=== PATIENT | male | born 1990 | race Caucasian/White ===

== ENCOUNTER 2020-08-13 14:04 | Emergency (ER) | payer BC, SELFPAY ==
[2020-08-13 14:08] VITALS: BP 169/119; PULSE 85; RESP 16; TEMP 36.5; O2SAT 96; BMI 29.5
--- NOTE | 2020-08-13 14:08 | HMH.EDGENADL ---
ED Disposition Clinical Impression: Bipolar 1 disorder, Encounter for medication refill Disposition: Home, Self-Care Condition on Discharge: Good Additional Instructions: Please take meds as prescribed. Follow-up with Dr. Cruz as scheduled on . Immediately return if any new or worsening symptoms prior to that time. Prescriptions: haloperidoL [Haldol 5mg tablet] 10 mg PO BID 21 Days #42 tab Transmission Status: Pending to [id number] OLANZapine [Zyprexa 5mg tablet] 5 mg PO BID 21 Days #42 tab Transmission Status: Pending to [id number] Referrals: PCP,No [Primary Care Provider] - - Critical Care Critical Care Time: No Attestation: On , the high probability of a clinically significant, sudden or life threatening deterioration of the following system(s) required my full and direct attention, intervention and personal management. The time I documented below is in addition to time spent performing reported procedures but includes the following listed in this critical care notation. Medical Decision Making - Medical Records Medical records reviewed: Yes: I reviewed the patient's medical records. - Jose Inquiry Pt receiving controlled substance: No Vital Signs: 08/13/20 14:08 Temperature 97.7 F Temperature Source Temporal Artery Scan Pulse Rate [Right Radial] 85 Respiratory Rate 16 Blood Pressure [Right Arm] 169/119 H Blood Pressure Mean [Right Arm] 135 Blood Pressure Source [Right Arm] Automatic Cuff Blood Pressure Position [Right Arm] Sitting 02 Sat by Pulse Oximetry 96 Oxygen Delivery Method Room Air Orders (Tests/Meds): ED MEDICATIONS Discontinued Medications Generic Name Dose Route Start Last Admin Trade Name Freq PRN Reason Stop Dose Admin Haloperidol 10 mg 08/13/20 14:19 Haloperidol 5 Mg Tablet PO 08/13/20 14:20 ONCE ONE Olanzapine 5 mg 08/13/20 14:18 Olanzapine 5 Mg Tablet PO 08/13/20 14:19 ONCE ONE Medical Decision Narrative: Patient presents with medication refill request. Mom does have empty bottles and patient does appear to take Zyprexa 5 mg twice daily and Haldol 10 mg twice daily. These bottles are empty. Patient also takes benztropine. Mom states patient has been on these medications for several years and simply ran out as he currently is in the process of finding a new PCP. Mom states he has an appointment on the . Patient was provided a short course of these medications to make it until the . I do believe it is indicated. Mother knows the risks of these medications and will monitor patient appropriately. Patient will need to return if any psychotic symptoms, hallucinations, or other new concerning symptoms. Assessment: Bipolar disorder Schizophrenia Disposition: Home with prescriptions and follow-up General Adult HPI - General Stated complaint: headache Time Seen by Provider: 08/13/20 14:25 - History of Present Illness HPI narrative: Patient 29-year-old male history of bipolar disorder and schizophrenia presenting with medication complaint. Mother states patient has been out of his Zyprexa and Haldol over the past 2 weeks he has been taking his medications for several years. He most recently relocated to [place] and his previous provider in [place] was unable to drive renew prescriptions as he does have an appointment with a new provider on 03 September. Mom states he has had no psychotic symptoms but has complained of intermittent headache which he normally does when he is out of his medications. Patient has no complaints to me here today in the emergency department. Mother requesting refill prescriptions. - Related Data Home Medications Medication Instructions Recorded Confirmed Benztropine Mesylate 0.5 mg PO BID 08/13/20 08/13/20 Divalproex Sodium 500 mg PO DIRECTED 08/13/20 08/13/20 OLANZapine [Olanzapine] 5 mg PO BID 08/13/20 08/13/20 haloperidoL [Haloperidol] 10 mg PO BID 08/13/20 1
[2020-08-13 15:01] VITALS: BP 169/119; PULSE 85; RESP 16; TEMP 36.5; O2SAT 96
== END 2020-08-13 15:02 | disposition home or self-care (01) ==
PROVIDERS: Emergency Provider Emergency Medicine
DX: F31.9 Bipolar disorder, unspecified (principal); Z76.0 Encounter for issue of repeat prescription; Z88.0 Allergy status to penicillin
CPT/HCPCS: 99281

== ENCOUNTER → 2020-10-19 13:38 | Outpatient (CLI) | payer BC, SELFPAY ==
[2020-10-19 14:20] LABS: Basophils # 0.1 K/mm3 (0-0.2); Basophils % 0.7 % (0.1-2.0); Eosinophils # 0.5 K/mm3 (0.0-0.4); Eosinophils % 3.2 % (0.1-12.0); Hematocrit 46.2 % (42.0-52.0); Hemoglobin 15.6 g/dL (14.1-18.0); Lymphocytes # 4.2 K/mm3 (0.7-4.5); Lymphocytes % 30.2 % (10-50); Mean Corpuscular HGB Conc 33.8 g/dL (31.8-35.4); Mean Corpuscular Hemoglobin 30.5 pg (27.0-31.2); Mean Corpuscular Volume 90.2 fl (80-94); Mean Platelet Volume 8.5 fl (7.4-10.4); Monocytes # 1.4 K/mm3 (0.1-1.0); Monocytes % 10.1 % (1.7-9.3); Neutrophils # 7.8 K/mm3 (1.8-7.8); Neutrophils % 55.8 % (37.0-80.0); Platelet Count 353 K/mm3 (142-424); Red Blood Count 5.12 M/mm3 (4.60-6.20); Red Cell Distribution Width 13.8 % (11.5-17.5)
[2020-10-19 14:37] LABS: Hemoglobin A1C 5.4 % (4.0-6.0)
[2020-10-19 15:02] LABS: Alanine Aminotransferase 26 U/L (12-78); Albumin Level 4.4 g/dl (3.5-5.0); Albumin/Globulin Ratio 1.6 (1.1-1.8); Alkaline Phosphatase 117 U/L (38-126); Anion Gap 12.6 mEq/L (5-15); Aspartate Amino Transferase 26 U/L (17-59); Bilirubin,Total 0.3 mg/dl (0.2-1.3); Blood Urea Nitrogen 10 mg/dl (9-20); Calcium 10.4 mg/dl (8.4-10.2); Carbon Dioxide 23 mmol/L (22.0-30.0); Chloride 110 mmol/L (98-107); Chol/HDL Ratio 11.4 (1-3.5); Cholesterol 274 mg/dl (140-200); Estimated Glomerular Filt Rate 114 ml/min (>60); GFR (African American) 137 ML/MIN (>60); Globulin 2.8 g/dL (1.3-3.2); Glucose 95 mg/dl (74-100); HDL Cholesterol 24 mg/dl (40-60); Iron 76 ug/dL (49-181); Potassium 4.6 mmoL/L (3.5-5.1); Sodium 141 mmol/L (136-145); Total Protein,Serum 7.2 g/dl (6.3-8.2)
[2020-10-19 15:20] LABS: Triglycerides 786 mg/dl (30-150)
[2020-10-19 15:34] LABS: Thyroid Stimulating Hormone 1.11 uIU/mL (0.465-4.68)
[2020-10-19 15:53] LABS: Vitamin B12 742 pg/mL (239-931)
[2020-10-19 16:22] LABS: Total Iron Binding Capacity 350 ug/dL (261-462)
[2020-10-29 07:23] LABS: 1,25 Dihydroxy Vitamin D 60 pg/mL (.); 1,25-Dihydroxy, Vitamin D-2 <10 pg/mL (.); 1,25-Dihydroxy, Vitamin D-3 60 pg/mL (.)
== END ==
PROVIDERS: Visit Provider Nurse Practitioner Psychiatric/Mental Health
DX: Z00.00 Encounter for general adult medical examination without abnormal findings (principal); Z79.899 Other long term (current) drug therapy
CPT/HCPCS: 36415; 80053; 80061; 82607; 82652; 83036; 83540; 83550; 84443; 85025

== ENCOUNTER 2021-01-16 17:17 | Emergency (ER) | payer BC, SELFPAY ==
[2021-01-16] VITALS (10 sets, daily range): BP systolic 111–166; BP diastolic 10–116; PULSE 62–115; RESP 16–20; TEMP 35.9–37.4; O2SAT 94–98; BMI 35.4; BMI 36.5
[2021-01-16 18:20] LABS: Microscopic, Urine URINE MICROSCOPIC (MICROSCOPIC)
[2021-01-16 18:40] LABS: Appearance,Urine CLEAR (Clear); Bilirubin,Urine Negative (Negative); Blood, Urine Negative (Negative); Color,Urine YELLOW (Yellow); Glucose,Urine (UA) Negative (Negative); Ketones,Urine Negative (Negative); Leukocyte Esterase,Urine Negative (Negative); Nitrate,Urine Negative (Negative); Protein,Urine Negative (Negative); Urobilinogen,Urine 0.2 EU/dl (0.2)
--- NOTE | 2021-01-16 18:46 | PC.NURSE ---
Lab at bedside
[2021-01-16 19:06] LABS: Benzodiazepines Screen,Urine Negative ng/ml (<200)
[2021-01-16 19:07] LABS: Amphetamine/Metha Screen,Urine Negative ng/ml (<1000)
[2021-01-16 19:08] LABS: Cannabinoid Screen,Urine Negative ng/ml (<50)
[2021-01-16 19:09] LABS: Cocaine Screen,Urine Negative ng/ml (<300); Opiate Screen,Urine Negative ng/ml (<300)
[2021-01-16 19:22] LABS: Basophils # 0.1 K/mm3 (0-0.2); Basophils % 0.7 % (0.1-2.0); Eosinophils # 0.4 K/mm3 (0.0-0.4); Eosinophils % 2.1 % (0.1-12.0); Hematocrit 47.6 % (42.0-52.0); Hemoglobin 16.6 g/dL (14.1-18.0); Lymphocytes % 17.7 % (10-50); Mean Corpuscular HGB Conc 34.8 g/dL (31.8-35.4); Mean Corpuscular Hemoglobin 29.6 pg (27.0-31.2); Mean Platelet Volume 8.1 fl (7.4-10.4); Monocytes # 1.1 K/mm3 (0.1-1.0); Monocytes % 6.3 % (1.7-9.3); Neutrophils # 12.4 K/mm3 (1.8-7.8); Neutrophils % 73.3 % (37.0-80.0); Platelet Count 403 K/mm3 (142-424); Red Blood Count 5.59 M/mm3 (4.60-6.20); Red Cell Distribution Width 13.4 % (11.5-17.5)
--- NOTE | 2021-01-16 19:24 | HMH.EDGENADL ---
ED Disposition Clinical Impression: Suicidal ideation, Chronic schizophrenia, Elevated triglycerides with high cholesterol, Elevated white blood cell count Disposition: Xfer Psychiatric Hosp Condition on Discharge: Fair Additional Instructions: Patient needs to follow-up with a physician for his elevated triglycerides cholesterol and white count which were present in October. Referrals: Heather Cruz APRN [Primary Care Provider] - Time of Disposition: 20:15 - Critical Care Critical Care Time: No Attestation: On 01/16/21, the high probability of a clinically significant, sudden or life threatening deterioration of the following system(s) required my full and direct attention, intervention and personal management. The time I documented below is in addition to time spent performing reported procedures but includes the following listed in this critical care notation. Medical Decision Making - Jose Inquiry Pt receiving controlled substance: No Vital Signs: 01/16/21 17:18 01/16/21 18:18 01/16/21 18:55 Temperature 98.6 F 99.3 F Temperature Source Oral Oral Pulse Rate 103 H 100 H Pulse Rate [Radial] 105 H Respiratory Rate 16 16 17 Blood Pressure 144/98 H 145/93 H Blood Pressure [Right Arm] 166/116 H Blood Pressure Mean [Right Arm] 132 Blood Pressure Source Automatic Cuff Manual Cuff/ Auscultation Blood Pressure Position Sitting Blood Pressure Position [Right Arm] Sitting 02 Sat by Pulse Oximetry 98 94 L 96 Oxygen Delivery Method Room Air Room Air Room Air 01/16/21 19:24 01/16/21 19:46 01/16/21 20:01 Temperature 97.8 F 98.5 F 98.9 F Temperature Source Oral Oral Pulse Rate 78 115 H Pulse Rate [Radial] Respiratory Rate 20 20 20 Blood Pressure 154/10 H 154/99 H 157/104 H Blood Pressure [Right Arm] Blood Pressure Mean [Right Arm] Blood Pressure Source Automatic Cuff Automatic Cuff Automatic Cuff Blood Pressure Position Supine Supine Supine Blood Pressure Position [Right Arm] 02 Sat by Pulse Oximetry 96 96 95 Oxygen Delivery Method Room Air Room Air Room Air - Lab Data Lab results reviewed: Yes: I reviewed the patient's lab results. Lab Results 01/16/21 17:45: Urine Color Yellow, Urine Appearance Clear, Urine pH 6.0, Ur Specific [place] 1.010, Urine Protein Negative, Urine Glucose (UA) Negative, Urine Ketones Negative, Urine Blood Negative, Urine Nitrate Negative, Urine Bilirubin Negative, Urine Urobilinogen 0.2, Ur Leukocyte Esterase Negative, Ur Squamous Epith Cells 3-5 01/16/21 17:45: Urine Opiates Screen Negative, Urine Methadone Screen Negative, Ur Phencyclidine Scrn Negative, Ur Amphetamines Screen Negative, U Benzodiazepines Scrn Negative, Urine Cocaine Screen Negative, U Marijuana (THC) Screen Negative 01/16/21 18:20: WBC 17.0 H, RBC 5.59, Hgb 16.6, Hct 47.6, MCV 85.0, MCH 29.6, MCHC 34.8, RDW 13.4, Plt Count 403, MPV 8.1, Neut % (Auto) 73.3, Lymph % (Auto) 17.7, [place] % (Auto) 6.3, Eos % (Auto) 2.1, Baso % (Auto) 0.7, Neut # (Auto) 12.4 H, Lymph # (Auto) 3.0, [place] # (Auto) 1.1 H, Eos # (Auto) 0.4, Baso # (Auto) 0.1, Total Counted 100, Neutrophils % (Manual) 70, Lymphocytes % (Manual) 25, Monocytes % (Manual) 5, Platelet Estimate Normal, RBC Morphology Normal 01/16/21 18:20: Sodium 140, Potassium 3.9, Chloride 108 H, Carbon Dioxide 22, Anion Gap 13.9, BUN 7 L, Creatinine 0.80, Estimated Creat Clear 206, Estimated GFR 113, Est GFR ( Amer) 136, Glucose 107 H, Calcium 9.6, Total Bilirubin 0.4, AST 33, ALT 37, Alkaline Phosphatase 158 H, Total Protein 7.9, Albumin 4.8, Globulin 3.1, Albumin/Globulin Ratio 1.5, Salicylates < 1.0 L, Acetaminophen < 10 L 01/16/21 18:20: Plasma/Serum Alcohol < 10 Count of 17,000 with no history of infection. He had very significantly elevated triglycerides cholesterol in October his drug screen is negative Result diagrams: 01/16/21 18:20 01/16/21 18:20 Orders (Tests/Meds): ORDERS Category Date Time Status UDS [Drug Screen,Urine] Stat Lab 01/16
[2021-01-16 19:30] LABS: MANUAL DIFFERENTIAL MANUAL DIFFERENTIAL (MANUAL DIFF)
[2021-01-16 19:33] LABS: Methadone Screen,Urine Negative ng/ml (<300); Phencyclidine Screen,Urine Negative ng/ml (<25)
[2021-01-16 19:38] LABS: Chloride 108 mmol/L (98-107)
[2021-01-16 19:39] LABS: Potassium 3.9 mmoL/L (3.5-5.1); Sodium 140 mmol/L (136-145)
[2021-01-16 19:41] LABS: Blood Urea Nitrogen 7 mg/dl (9-20); Creatinine Clearance Estimated 206 mL/min (50-200); Estimated Glomerular Filt Rate 113 ml/min (>60); GFR (African American) 136 ML/MIN (>60)
[2021-01-16 19:42] LABS: Alanine Aminotransferase 37 U/L (12-78); Albumin Level 4.8 g/dl (3.5-5.0); Albumin/Globulin Ratio 1.5 (1.1-1.8); Alkaline Phosphatase 158 U/L (38-126); Anion Gap 13.9 mEq/L (5-15); Aspartate Amino Transferase 33 U/L (17-59); Bilirubin,Total 0.4 mg/dl (0.2-1.3); Calcium 9.6 mg/dl (8.4-10.2); Carbon Dioxide 22 mmol/L (22.0-30.0); Globulin 3.1 g/dL (1.3-3.2); Glucose 107 mg/dl (74-100); Total Protein,Serum 7.9 g/dl (6.3-8.2)
[2021-01-16 19:49] LABS: Acetaminophen < 10 ug/ml (10-30); Salicylate < 1.0 mg/dL (2.0-20.0)
[2021-01-16 19:52] LABS: Lymphocytes % 25 % (10-50); Monocytes % 5 % (2-9); Neutrophils % 70 % (42-76); Platelet Estimate Normal; RBC Morphology Normal; Total Cells Counted 100
[2021-01-16 20:20] LABS: Ethyl Alcohol < 10 mg/dl (0-10)
--- NOTE | 2021-01-16 21:00 | PC.NURSE ---
[facility] notified of patient ready to be transferred
[2021-01-16 21:12] LABS: Adenovirus,PCR Not Detected (NotDetected); Bordetella Pertussis Not Detected (NotDetected); Chlamydophila Pneumoniae, PCR Not Detected (NotDetected); Coronavirus 19, PCR Not Detected (NotDetected); Coronavirus 229E Not Detected (NotDetected); Coronavirus NL63 Not Detected (NotDetected); Coronavirus OC43 Not Detected (NotDetected); Coronovirus HKU1,PCR Not Detected (NotDetected); Human Metapneumovirus Not Detected (NotDetected); Influenza A, PCR Not Detected (NotDetected); Influenza AH1, 2009 Not Detected (NotDetected); Influenza AH1, PCR Not Detected (NotDetected); Influenza AH3,PCR Not Detected (NotDetected); Influenza B, PCR Not Detected (NotDetected); Mycoplasma Pneumoniae, PCR Not Detected (NotDetected); Parainfluenza 1, PCR Not Detected (NotDetected); Parainfluenza 2, PCR Not Detected (NotDetected); Parainfluenza 3, PCR Not Detected (NotDetected); Parainfluenza 4, PCR Not Detected (NotDetected); Respiratory Syncytial Virus Not Detected (NotDetected); Rhinovirus/Enterovirus Not Detected (NotDetected)
[2021-01-16 22:29] LABS: Barbiturates Screen,Urine Negative ng/ml (<200)
== END 2021-01-16 21:29 ==
PROVIDERS: Emergency Provider Emergency Medicine; PCP Nurse Practitioner Psychiatric/Mental Health
DX: R45.851 Suicidal ideations (principal); F20.9 Schizophrenia, unspecified; E78.2 Mixed hyperlipidemia; D72.829 Elevated white blood cell count, unspecified; F17.210 Nicotine dependence, cigarettes, uncomplicated; Z88.0 Allergy status to penicillin
CPT/HCPCS: 80053; 80305; 80329; 81001; 85007; 85025; 87581; 87633; 87798; 99284

== ENCOUNTER 2021-08-12 16:59 | Emergency (ER) | payer BC, SELFPAY ==
--- NOTE | 2021-08-12 17:13 | ECG_ITS ---
APPROVED REPORT Exam: Resting ECG HR:107 bpm ECG Measurements Heart Rate 107 AXES MI 126 P 65 QRSd 88 QRS 24 QT 332 T 30 QTc 443 Conclusion Sinus tachycardia Otherwise normal ECG Electronically signed by : Bala Ledbetter MD 08/15/2021 13:29:07
[2021-08-12 17:16] VITALS: BP 183/97; PULSE 115; RESP 18; TEMP 36.7; O2SAT 94; BMI 35.1
--- NOTE | 2021-08-12 17:34 | HMH.EDGENADL ---
ED Disposition Clinical Impression: Acute exacerbation of psychosis Disposition: Xfer Psychiatric Hosp Condition on Discharge: Fair Instructions: DI for Altered Mental Status Referrals: Elmer Blanchard MD [Primary Care Provider] - - Critical Care Critical Care Time: No Attestation: On 08/12/21, the high probability of a clinically significant, sudden or life threatening deterioration of the following system(s) required my full and direct attention, intervention and personal management. The time I documented below is in addition to time spent performing reported procedures but includes the following listed in this critical care notation. Medical Decision Making - Medical Records Medical records reviewed: Yes: I reviewed the patient's medical records. - Jose Inquiry Pt receiving controlled substance: No Jose was queried for this patient: No Vital Signs: 08/12/21 17:16 08/12/21 18:35 Temperature 98.1 F Temperature Source Oral Pulse Rate 97 H Pulse Rate [Right Radial] 115 H Respiratory Rate 18 16 Blood Pressure 123/101 H Blood Pressure [Right Arm] 183/97 H Blood Pressure Mean 108 Blood Pressure Mean [Right Arm] 125 Blood Pressure Source [Right Arm] Automatic Cuff Blood Pressure Position [Right Arm] Sitting 02 Sat by Pulse Oximetry 94 L 95 Oxygen Delivery Method Room Air - Lab Data Lab results reviewed: Yes: I reviewed the patient's lab results. Lab Results 08/12/21 17:15: Urine Opiates Screen Negative, Urine Methadone Screen Negative, Ur Barbituates Screen Negative, Ur Phencyclidine Scrn Negative, Ur Amphetamines Screen Negative, U Benzodiazepines Scrn Negative, Urine Cocaine Screen Negative, U Marijuana (THC) Screen Negative 08/12/21 17:45: WBC 15.5 H, RBC 5.19, Hgb 15.8, Hct 48.1, MCV 92.5, MCH 30.3, MCHC 32.8, RDW 14.1, Plt Count 328, MPV 8.6, Neut % (Auto) 49.0, Lymph % (Auto) 35.8, [place] % (Auto) 9.4 H, Eos % (Auto) 3.5, Baso % (Auto) 2.3 H, Neut # (Auto) 7.6, Lymph # (Auto) 5.6 H, [place] # (Auto) 1.5 H, Eos # (Auto) 0.5 H, Baso # (Auto) 0.4 H, Total Counted 100, Neutrophils % (Manual) 53, Band Neutrophils % 3.0, Lymphocytes % (Manual) 42, Atypical Lymphs % 1.0, Monocytes % (Manual) 1 L, Platelet Estimate Normal, RBC Morphology Normal 08/12/21 17:45: Sodium 141, Potassium 3.8, Chloride 107, Carbon Dioxide 26, Anion Gap 11.8, BUN 16, Creatinine 0.70, Estimated Creat Clear 247, Estimated GFR 132, Est GFR ( Amer) 159, Glucose 103 H, Calcium 9.3, Total Bilirubin 0.4, AST 40, ALT 36, Alkaline Phosphatase 111, Total Protein 7.0, Albumin 4.3, Globulin 2.7, Albumin/Globulin Ratio 1.6, Salicylates < 1.0 L, Acetaminophen < 10 L 08/12/21 17:45: SARS-CoV-2 (PCR) Not detected, Influenza A Untype (PCR) Not detected, Influenza Type B (PCR) Not detected Result diagrams: 08/12/21 17:45 08/12/21 17:45 Medical Decision Narrative: Patient is a 30-year-old male with past medical history of bipolar, schizophrenia on antipsychotic medications presenting to the ED for altered mental status. Patient is awake, alert, not in acute distress. Patient is alert self only. Patient unable to answer any history questions. Patient keeps repeating that someone is after him. Patient states that if he was let go he would take care of these people. medical work-up was performed. Patient's work-up was remarkable for a mild leukocytosis this was likely secondary to patient's antipsychotic medication which can cause agranulation. And has no signs of infection, no new cough worsening cough. Family states patient is a chronic smoker. patient was petitioned to [facility]. Was admitted to [facility] for further care and management. General Adult HPI - General Stated complaint: AMS Time Seen by Provider: 08/12/21 17:34 - History of Present Illness HPI narrative: Patient is a 30-year-old male with past medical history of bipolar, schizophrenia on multiple antipsychotic medications presenting to the ED for a
--- NOTE | 2021-08-12 17:53 | PC.NURSE ---
Called and spoke with Judge Lozada. He advised I could send the forms over via email as a PDF to be signed
[2021-08-12 17:57] LABS: Coronavirus 19, PCR Not Detected (NotDetected); Influenza A, PCR Not Detected (NotDetected); Influenza B, PCR Not Detected (NotDetected)
[2021-08-12 17:59] LABS: Basophils # 0.4 K/mm3 (0-0.2); Basophils % 2.3 % (0.1-2.0); Eosinophils # 0.5 K/mm3 (0.0-0.4); Eosinophils % 3.5 % (0.1-12.0); Hematocrit 48.1 % (42.0-52.0); Hemoglobin 15.8 g/dL (14.1-18.0); Lymphocytes # 5.6 K/mm3 (0.7-4.5); Lymphocytes % 35.8 % (10-50); Mean Corpuscular HGB Conc 32.8 g/dL (31.8-35.4); Mean Corpuscular Hemoglobin 30.3 pg (27.0-31.2); Mean Corpuscular Volume 92.5 fl (80-94); Mean Platelet Volume 8.6 fl (7.4-10.4); Monocytes # 1.5 K/mm3 (0.1-1.0); Monocytes % 9.4 % (1.7-9.3); Neutrophils # 7.6 K/mm3 (1.8-7.8); Platelet Count 328 K/mm3 (142-424); Red Blood Count 5.19 M/mm3 (4.60-6.20); Red Cell Distribution Width 14.1 % (11.5-17.5); White Blood Count 15.5 K/mm3 (4.8-10.8)
[2021-08-12 18:03] LABS: MANUAL DIFFERENTIAL MANUAL DIFFERENTIAL (MANUAL DIFF)
[2021-08-12 18:12] LABS: Acetaminophen < 10 ug/ml (10-30); Alanine Aminotransferase 36 U/L (12-78); Albumin Level 4.3 g/dl (3.5-5.0); Albumin/Globulin Ratio 1.6 (1.1-1.8); Alkaline Phosphatase 111 U/L (38-126); Anion Gap 11.8 mEq/L (5-15); Aspartate Amino Transferase 40 U/L (17-59); Bilirubin,Total 0.4 mg/dl (0.2-1.3); Blood Urea Nitrogen 16 mg/dl (9-20); Calcium 9.3 mg/dl (8.4-10.2); Carbon Dioxide 26 mmol/L (22.0-30.0); Chloride 107 mmol/L (98-107); Creatinine Clearance Estimated 247 mL/min (50-200); Estimated Glomerular Filt Rate 132 ml/min (>60); GFR (African American) 159 ML/MIN (>60); Globulin 2.7 g/dL (1.3-3.2); Glucose 103 mg/dl (74-100); Potassium 3.8 mmoL/L (3.5-5.1); Salicylate < 1.0 mg/dL (2.0-20.0); Sodium 141 mmol/L (136-145)
[2021-08-12 18:15] LABS: Benzodiazepines Screen,Urine Negative ng/ml (<200)
[2021-08-12 18:16] LABS: Amphetamine/Metha Screen,Urine Negative ng/ml (<1000)
[2021-08-12 18:17] LABS: Barbiturates Screen,Urine Negative ng/ml (<200); Cannabinoid Screen,Urine Negative ng/ml (<50)
[2021-08-12 18:18] LABS: Cocaine Screen,Urine Negative ng/ml (<300); Methadone Screen,Urine Negative ng/ml (<300)
[2021-08-12 18:19] LABS: Opiate Screen,Urine Negative ng/ml (<300)
[2021-08-12 18:20] LABS: Phencyclidine Screen,Urine Negative ng/ml (<25)
--- NOTE | 2021-08-12 18:20 | PC.NURSE ---
Sent forms to Judge Lozada
--- NOTE | 2021-08-12 18:23 | PC.NURSE ---
Calling [facility] to speak with receiving coordinator
[2021-08-12 18:35] VITALS: BP 123/101; PULSE 97; RESP 16; O2SAT 95
--- NOTE | 2021-08-12 18:37 | XR_ITS ---
PROCEDURE INFORMATION: Exam: XR Chest Exam date and time: 08/12/2021 6:37 PM Age: 30 years old Clinical indication: Shortness of breath TECHNIQUE: Imaging protocol: XR of the chest. Views: 2 views. COMPARISON: No relevant prior studies available. FINDINGS: Lungs: Consolidative opacity in lung base, compatible with subsegmental atelectasis vs infiltrate. No appreciable pulmonary edema. Pleural spaces: No pleural effusion. No pneumothorax. Heart/Mediastinum: Cardiomediastinal silouhette is within normal limits. Bones/joints: No acute osseous abnormality. Soft tissues: Unremarkable. IMPRESSION: Consolidative opacity in lung base, compatible with subsegmental atelectasis vs infiltrate.
[2021-08-12 18:51] LABS: Lymphocytes % 42 % (10-50); Monocytes % 1 % (2-9); Neutrophils % 53 % (42-76); Platelet Estimate Normal; RBC Morphology Normal; Total Cells Counted 100
--- NOTE | 2021-08-12 18:52 | PC.NURSE ---
faxed records to [facility]
--- NOTE | 2021-08-12 20:58 | PC.NURSE ---
Called dispatch to request transfer to [facility]
--- NOTE | 2021-08-12 21:21 | PC.NURSE ---
[facility] here for transfer.
[2021-08-12 21:33] VITALS: BP 184/99; PULSE 97; RESP 22; TEMP 36.7; O2SAT 97
[2021-10-08 11:16] LABS: Ethanol U, Quan NEGATIVE
== END 2021-08-12 21:15 ==
PROVIDERS: Emergency Provider Emergency Medicine; PCP Emergency Medicine
DX: F23 Brief psychotic disorder (principal); F20.9 Schizophrenia, unspecified; F17.210 Nicotine dependence, cigarettes, uncomplicated; Z88.0 Allergy status to penicillin; I10 Essential (primary) hypertension
CPT/HCPCS: 71046; 80053; 80305; 80307; 80329; 85007; 85025; 93005; 99284; C9803; U0003; U0005